=== PATIENT | male | born 2005 | race African-American/Black ===

== ENCOUNTER 2025-03-11 08:26 | Emergency (ER) | payer OTHER, SELFPAY ==
[2025-03-11] MEDS ORDERED: Ketorolac Tromethamine 30 MG (1 mL) VIAL ONE (09:14)
== END 2025-03-11 10:26 | disposition home or self-care (01) ==
LOC: ERS 08:26
DX: B34.9 Viral infection, unspecified (principal)
CPT/HCPCS: 71045; 87428; 96372; J1885; Q0162